=== PATIENT | female | born 1965 ===

== ENCOUNTER 2020-01-14 10:08 | Emergency (ER) | payer SELFPAY ==
[~2020-01-14] VITALS: Ht 170.2 cm; Wt 102.7 kg
[2020-01-14 10:18] VITALS: BP 103/56; TEMP 98.7
[2020-01-14] MEDS ORDERED: PROAIR HFA0.09 MG/AC IH (12:13)
[2020-01-14 12:27] VITALS: PULSE 84
== END 2020-01-14 12:30 | disposition home or self-care (01) ==
LOC: COL.ER 10:08
DX: J10.1 Influenza due to other identified influenza virus with other respiratory manifestations (principal); Z88.0 Allergy status to penicillin; Z87.891 Personal history of nicotine dependence

== ENCOUNTER 2020-05-11 13:52 | Inpatient (IN) | payer SELFPAY ==
[~2020-05-11] VITALS: Ht 170.2 cm; Wt 102.9 kg
[2020-05-11] VITALS (340 sets, daily range): BP systolic 170; BP diastolic 92; PULSE 78; TEMP 98.7; O2SAT 92–100
[~2020-05-11 13:52] MED LIST: PROAIR HFA0.09 MG/AC IH
[2020-05-11 14:20] LABS: BASO % 0.5 % (0.0-2.0); EOS # 0.2 (0.0-0.7); EOS % 2.8 % (0-4.0); GRAN # 4.8 (1.4-6.5); GRAN % 63.9 % (42.2-75.2); HEMATOCRIT 45.8 % (37.0-47.0); HEMOGLOBIN 15.3 g/dl (12.5-16.0); LYMPH % 26.9 % (20.0-51.0); MEAN CELL VOLUME 84 fl (80.0-100.0); MEAN CORPUSCULAR HEMOGLOBIN 28 pg (27.0-31.0); MEAN CORPUSCULAR HGB CONC 33 g/dl (33.0-37.0); MEAN PLATELET VOLUME 11.2 fl (7.4-10.4); MONO # 0.4 (0.1-0.6); MONO % 5.8 % (1.7-9.3); PLATELET COUNT 310 K/mm3 (130-400); RED BLOOD COUNT 5.45 M/mm3 (4.10-5.30); REDCELL DISTRIBUTION WIDTH-CV 13.5 % (11.5-14.5)
[2020-05-11 14:25] LABS: COLLECTION METHOD CLEAN CATCH
[2020-05-11 14:31] LABS: MUCOUS Present /lpf; PH 5 (5-8); SQUAMOUS EPITHELIAL 0-2 /hpf; URINE APPEARANCE Clear; URINE BACTERIA None Seen /hpf; URINE BILIRUBIN Negative (NEGATIVE); URINE BLOOD Negative (NEGATIVE); URINE COLOR Yellow; URINE GLUCOSE 3+ (NEGATIVE); URINE KETONE 2+ (NEGATIVE); URINE LEUKOCYTE ESTERASE Negative (NEGATIVE); URINE NITRATE Negative (NEGATIVE); URINE PROTEIN(semi-quant) Negative (NEGATIVE); URINE RBC 0-2 /hpf; URINE UROBILINOGEN Negative (NEGATIVE)
[2020-05-11 14:35] LABS: ALBUMIN 4.5 gm/dL (3.5-5.0); BILIRUBIN,TOTAL 0.7 mg/dL (0.0-1.0); C-REACTIVE PROTEIN 1.2 mg/dL (0.0-0.9); CALCIUM 9.5 mg/dL (8.4-10.2); CREATININE, serum 0.61 (0.52-1.25); POTASSIUM 4.2 mmol/L (3.4-5.0); TOTAL PROTEIN 7.9 gm/dL (6.4-8.2)
--- NOTE | 2020-05-11 16:15 | NUR ---
Report received from nurse in ED.
--- NOTE | 2020-05-11 16:35 | NUR ---
Patient received from ED. Patient is resting comfortably in bed. Call light and bedside table are within reach. WIll continue to monitor patient throughout shift.
[2020-05-11 17:48] LABS: MAGNESIUM 1.9 mg/dL (1.6-2.3); PHOSPHOROUS 2.8 mg/dL (2.5-4.5)
[2020-05-11 18:03] LABS: TROPONIN-I 3 HR POST INITIAL < 0.012 ng/mL (0.000-0.034)
--- NOTE | 2020-05-11 18:30 | NUR ---
AT THIS TIME IT IS NOTED THAT APPROXIMATELY 75 CC OF INSULIN BOLUS D/T THE IV PUMP CHANNELS BEING SET UP INCORRECTLY. THE PRIMARY LINE ( WITH IV FLUIDS) WAS SET UP FOR THE INSULIN GTT AND THE SECONDARY LINE ( WITH REGULAR INSULIN) WAS PROGRAMMED FOR THE IV FLUID RATE OF 250 CC/HR. INSULIN BAG WAS EMPTY WHEN THIS RN ENTERED THE ROOM. AFTER SHEELA RAYMOND NOTIFIED OF THIS ERROR, IV PUMP PROGRAMMING WAS CORRECTED, THE INSULIN WAS KEPT OFF OF PATIENT. JOYCE CALVO, WAS CALLED AND NOTIFIED OF THIS ERROR. ORDERS RECEIVED FOR Q15 MIN BLOOD GLUCOSE CHECKS.
--- NOTE | 2020-05-11 19:12 | NUR ---
JOYCE CALVO CALLED FOR ORDERS D/T BLOOD GLUCOSE BEING 77. ORDERS RECEIVED FOR 1/2 AMP OF D50. WILL ADMINISTER AND CALL JOYCE CALVO BACK WITH UPDATE 15 MIN AFTER ADMINISTRATION AND BLOOD GLUCOSE CHECK.
--- NOTE | 2020-05-11 19:15 | NUR ---
Report given to SHEELA Chao. Patient is resting in bed. Call light and bedside table are within reach.
[2020-05-11 19:21] LABS: ANION GAP 11 mmol/L (7-16); BLOOD UREA NITROGEN 7 mg/dL (7-17); CALCIUM 9.3 mg/dL (8.4-10.2); CARBON DIOXIDE 17 mmol/L (22-30); CHLORIDE 114 mmol/L (98-107); CREATININE, serum 0.56 (0.52-1.25); GLUCOSE 88 mg/dL (74-106); POTASSIUM 3.1 mmol/L (3.4-5.0); SODIUM 142 mmol/L (137-145)
[2020-05-11 19:35] LABS: TROPONIN-I 6 HR POST INITIAL < 0.012 ng/mL (0.000-0.034)
--- NOTE | 2020-05-11 19:45 | NUR ---
Nurse at bedside. Patient denies nausea. Reports feeling "better" since administration of 1/2 amp D50. Will continue to closely monitor blood glucose levels.
--- NOTE | 2020-05-11 21:18 | NUR ---
Updated hospitalist on patient status. Reported last several accu checks. Ok to start hourly accu checks.
[2020-05-11 21:56] LABS: CALCIUM 8.9 mg/dL (8.4-10.2); CREATININE, serum 0.47 (0.52-1.25); POTASSIUM 3.8 mmol/L (3.4-5.0)
[2020-05-11 23:40] LABS: CALCIUM 8.6 mg/dL (8.4-10.2); CREATININE, serum 0.46 (0.52-1.25); POTASSIUM 4.4 mmol/L (3.4-5.0)
--- NOTE | 2020-05-11 23:45 | NUR ---
Discussed with hospitalist switiching to sliding scale. Patient deniess nausea and has asked several times for food. Will start ADA diet.
[2020-05-12] VITALS (1192 sets, daily range): BP systolic 112–121; BP diastolic 68–76; PULSE 64–85; TEMP 97.7–98.7; O2SAT 91–100
[2020-05-12 01:33] LABS: CALCIUM 8.9 mg/dL (8.4-10.2); CREATININE, serum 0.58 (0.52-1.25); POTASSIUM 4.2 mmol/L (3.4-5.0)
[2020-05-12 06:48] LABS: ANION GAP 11 mmol/L (7-16); BLOOD UREA NITROGEN 4 mg/dL (7-17); CALCIUM 9.1 mg/dL (8.4-10.2); CARBON DIOXIDE 16 mmol/L (22-30); CHLORIDE 110 mmol/L (98-107); CREATININE, serum 0.56 (0.52-1.25); GLUCOSE 260 mg/dL (74-106); POTASSIUM 4.3 mmol/L (3.4-5.0); SODIUM 137 mmol/L (137-145)
[2020-05-12 07:09] LABS: TROPONIN-I < 0.012 ng/mL (0.000-0.035)
--- NOTE | 2020-05-12 07:30 | NUR ---
Report recieved from Zhanna COKER. Patient in bed, complains of ANAND. Tylenol given by Gaby COKER. Call light in reach, denies further needs
[2020-05-12 09:57] LABS: CALCIUM 8.9 mg/dL (8.4-10.2); CREATININE, serum 0.45 (0.52-1.25); POTASSIUM 4.3 mmol/L (3.4-5.0)
--- NOTE | 2020-05-12 11:23 | NUR ---
Spoke with patient about restarting Insulin drip, voices understanding. Drip verified by this RN and Guillermo Dhaliwal RN.
[2020-05-12 12:28] LABS: CALCIUM 8.9 mg/dL (8.4-10.2); CREATININE, serum 0.46 (0.52-1.25); POTASSIUM 4.1 mmol/L (3.4-5.0)
--- NOTE | 2020-05-12 14:05 | NUR ---
Malter Operator met with patient to discuss discharge planning. Patient is tearful when SW arrives but does not want to elaborate why. Patient is agreeable to answer questions. Patient lives in [place] with her significant other, Floyd (ph#[phone]). Patient is employed at [employer] but states she has not worked there long enough to qualify for insurance coverage. Patient does not have primary care but would like an appointment set up at [facility]. Patient does not take any medications normally but has used [facility] in the past for medications. Patient is a new diabetic and is concerned about affording medications. Patient does not have Advance Directives but would like to set up DPOA-HC. SW assisted patient in completing form. Patient verbalized understanding of DPOA-HC and states she would like to designate her significant other, Floyd Mujica and her brother, Javier Vidal. TUNDE and RNNisha provided witness signature. SW provided original and copies to patient and placed copy on patient's chart. Patient states her brother and three children, Italo, Ishmael, and Jaleel all live in [place]. Following intake, TUNDE contacted [facility] to schedule appointment but was asked to call back tomorrow as all medical staff are gone today. TUNDE followed up with Linda, Pharmacist to discuss [facility]. Linda reports it is still too early to know what patient will be prescribed upon discharge. TUNDE received an email from [employer] Counselor who will follow up with patient about FAA. SW to continue to follow.
[2020-05-12 16:20] LABS: CALCIUM 8.7 mg/dL (8.4-10.2); CREATININE, serum 0.48 (0.52-1.25); POTASSIUM 3.8 mmol/L (3.4-5.0)
--- NOTE | 2020-05-12 20:30 | NUR ---
Assisted with PM cares. Reports some mild nausea; prn Zofran administered. Denies any other needs or concerns at this time. Will continue to monitor.
[2020-05-12 22:13] LABS: CALCIUM 8.5 mg/dL (8.4-10.2); CREATININE, serum 0.42 (0.52-1.25); POTASSIUM 3.5 mmol/L (3.4-5.0)
[2020-05-13] VITALS (710 sets, daily range): BP systolic 104–121; BP diastolic 47–64; PULSE 65–84; TEMP 97.8–98.6; O2SAT 91–100
--- NOTE | 2020-05-13 01:30 | NUR ---
Attempted to give patient second dose of effervescent potassium. Refused PO dose and requested IV. Will switch to IV replacement.
[2020-05-13 06:13] LABS: BASO % 0.8 % (0.0-2.0); EOS # 0.2 (0.0-0.7); EOS % 4.3 % (0-4.0); GRAN # 2.2 (1.4-6.5); HEMATOCRIT 38.3 % (37.0-47.0); LYMPH # 2.1 (1.2-3.4); LYMPH % 42.1 % (20.0-51.0); MEAN CELL VOLUME 84 fl (80.0-100.0); MEAN CORPUSCULAR HEMOGLOBIN 29 pg (27.0-31.0); MEAN CORPUSCULAR HGB CONC 34 g/dl (33.0-37.0); MEAN PLATELET VOLUME 11.1 fl (7.4-10.4); MONO # 0.4 (0.1-0.6); MONO % 7.4 % (1.7-9.3); PLATELET COUNT 250 K/mm3 (130-400); RED BLOOD COUNT 4.55 M/mm3 (4.10-5.30); REDCELL DISTRIBUTION WIDTH-CV 13.6 % (11.5-14.5)
[2020-05-13 06:27] LABS: ALBUMIN 3.1 gm/dL (3.5-5.0); BILIRUBIN,TOTAL 0.4 mg/dL (0.0-1.0); CALCIUM 8.7 mg/dL (8.4-10.2); CREATININE, serum 0.38 (0.52-1.25); MAGNESIUM 1.6 mg/dL (1.6-2.3); POTASSIUM 3.8 mmol/L (3.4-5.0); TOTAL PROTEIN 5.8 gm/dL (6.4-8.2)
--- NOTE | 2020-05-13 07:35 | NUR ---
Report received from Zhanna COKER and care resumed.
--- NOTE | 2020-05-13 09:33 | NUR ---
Dr Amador in to see pt at this time.
--- NOTE | 2020-05-13 10:36 | NUR ---
Insulin drip discontinued per Dr Amador verbal order
[2020-05-13] MEDS ORDERED: HUMALOG PEN100 U/ML SQ (11:38)
[2020-05-13] MEDS ORDERED: BASAGLAR K100 UNIT/1 SQ (11:38)
--- NOTE | 2020-05-13 12:52 | NUR ---
Gum Scoring Machine Operator attended clinical rounds with the team and patient to move to the medical floor. Patient will require insulin upon discharge but does not have insurance coverage. TUNDE collaborated with Linda Pharmacist to obtain prescription. TUNDE met with patient to complete Eligibility Attestation. TUNDE faxed Eligibility Attestation and prescription to [facility] and was advised that the insulin would ship tomorrow and arrive on Monday. TUNDE contacted [facility] and scheduled patient an appointment for 05/19/20 at 1100 (arrival time 1030). TUNDE faxed records to [facility] at fax#[phone]. TUNDE provided appointment time to patient and RNCristina. TUNDE provided update to medical floor SW.
--- NOTE | 2020-05-13 14:33 | NUR ---
Report called to Anish COKER on medical floor. Pt taken by wheelchair to room 351 with chart and belongings.
--- NOTE | 2020-05-13 16:00 | NUR ---
report received from SHEELA Teague, resting in bed, IV infusing to right forearm, no redness or swelling noted, denies needs
--- NOTE | 2020-05-13 16:50 | NUR ---
watching TV, assessment completed, see interventions for further info
--- NOTE | 2020-05-13 18:15 | NUR ---
continues to watch TV and await supper, denies needs
--- NOTE | 2020-05-13 18:57 | NUR ---
bedside shift report given to SHEELA Godinez
--- NOTE | 2020-05-13 20:30 | NUR ---
Received report from SHEELA Lua. A/O x 4. Denies any pain or discomfort at this time. meds adminsitered as ordered. IV to RFA intact with fluids infusing, dressing CDI. Independent in room. able to make needs known. Call light within reach.
[2020-05-14 04:40] VITALS: BP 112/52; PULSE 69; TEMP 98.1
--- NOTE | 2020-05-14 06:20 | NUR ---
Pt made no complaints during this shift. call light within reach.
--- NOTE | 2020-05-14 06:58 | NUR ---
Report given to SHEELA Julio.
[2020-05-14 07:03] LABS: CALCIUM 8.8 mg/dL (8.4-10.2); CREATININE, serum 0.41 (0.52-1.25); MAGNESIUM 1.5 mg/dL (1.6-2.3); POTASSIUM 3.9 mmol/L (3.4-5.0)
[2020-05-14 07:53] VITALS: BP 111/59; PULSE 66; TEMP 97.9
--- NOTE | 2020-05-14 10:05 | NUR ---
SW attended clinical rounds with the team. SW will continue to monitor to ensure a safe discharge.
[2020-05-14 11:10] VITALS: BP 110/52; PULSE 73; TEMP 97.4
--- NOTE | 2020-05-14 11:48 | NUR ---
PT BG >280. PT REPORTS FEELING NAUSEOUS AND DRY MOUTH, SYMPTOMS THAT BROUGHT HER IN. SLIDING SCALE INSULIN GIVEN. ZOFRAN ALSO GIVEN.
--- NOTE | 2020-05-14 13:13 | NUR ---
PT EDUCATE ON INSULIN TYPES AND USES BY PHARMACIST. ADMINISTRATION, SIGNS/SYMPTOMS OF HYPO/HYPERGLYCEMIA, EXERCISE IMPORTANCE, BLOOD GLUCOSE MONITORING, MEAL PLANNING AND FOODS TO AVOID REVIEWED WITH NURSE. TIGHTENER CONSULTED AND REVIEWED FOOD RECOMMENDATIONS. PT GIVEN DIABETES EDUCATION APPOINTMENT CARD. REPORTS UNDERSTANDING.
[2020-05-14 16:36] VITALS: BP 117/55; PULSE 73; TEMP 97.8
--- NOTE | 2020-05-14 19:22 | NUR ---
PATIENT RESTING IN BED DURING CHANGE OF SHIFT REPORT FROM DAY SHIFT NURSEPATTI. BED ALARM ON. TELE AND SALINE LOCK IN PLACE.
[2020-05-14 19:31] VITALS: BP 110/53; PULSE 78; TEMP 98
[2020-05-14 23:45] VITALS: BP 109/45; PULSE 80; TEMP 98.2
--- NOTE | 2020-05-15 03:00 | NUR ---
PATIENT SLEEPING, BREATHING OBSERVED NONLABORED AND EVEN. DOES NOT AWAKEN WHEN DOOR TO ROOM IS OPENED BY STAFF.
[2020-05-15 04:24] VITALS: BP 122/71; PULSE 71; TEMP 98
--- NOTE | 2020-05-15 07:30 | NUR ---
PATIENT RESTING IN BED DURING CHANGE OF SHIFT REPORT GIVEN TO DAY SHIFT NURSEJUDE.
[2020-05-15 07:35] VITALS: BP 130/73; PULSE 70; TEMP 98.3
[2020-05-15 07:38] LABS: BASO % 0.9 % (0.0-2.0); EOS # 0.3 (0.0-0.7); EOS % 5.7 % (0-4.0); GRAN # 1.9 (1.4-6.5); GRAN % 42.2 % (42.2-75.2); HEMATOCRIT 40.7 % (37.0-47.0); HEMOGLOBIN 13.4 g/dl (12.5-16.0); LYMPH % 44.5 % (20.0-51.0); MEAN CELL VOLUME 86 fl (80.0-100.0); MEAN CORPUSCULAR HEMOGLOBIN 28 pg (27.0-31.0); MEAN CORPUSCULAR HGB CONC 33 g/dl (33.0-37.0); MEAN PLATELET VOLUME 11.2 fl (7.4-10.4); MONO # 0.3 (0.1-0.6); MONO % 6.3 % (1.7-9.3); PLATELET COUNT 271 K/mm3 (130-400); RED BLOOD COUNT 4.73 M/mm3 (4.10-5.30); REDCELL DISTRIBUTION WIDTH-CV 13.8 % (11.5-14.5)
[2020-05-15 07:50] LABS: CALCIUM 9.2 mg/dL (8.4-10.2); CREATININE, serum 0.49 (0.52-1.25); POTASSIUM 4.3 mmol/L (3.4-5.0)
--- NOTE | 2020-05-15 08:00 | NUR ---
sitting up in bed eating breakfast, self administered insulin with nurse observing, administers correctly, denies needs at this time
[2020-05-15] MEDS ORDERED: GLUCOPHAGE500 MG/TAB PO (09:23)
[2020-05-15] MEDS ORDERED: BASAGLAR K100 UNIT/1 SQ (09:24)
[2020-05-15] MEDS ORDERED: HUMALOG PEN100 U/ML SQ (09:25)
--- NOTE | 2020-05-15 09:30 | NUR ---
c/o nausea after breakfast, medicated with zofran 4mg slow IV, Dr Haji and care team in to see patient, full assessment completed, see interventions for further info
--- NOTE | 2020-05-15 10:15 | NUR ---
resting in bed, states nausea is now better
[2020-05-15] MEDS ORDERED: LANCETS MC (10:53)
[2020-05-15] MEDS ORDERED: FREESTYLE PREC1 EAC5 MC (10:53)
[2020-05-15] MEDS ORDERED: GLUCOSE TEST ST1 DEV MC (10:53)
--- NOTE | 2020-05-15 11:05 | NUR ---
The patient is to discharge home today, 05/15. [facility] has delivered the patient's insulin and was given to the patient. The patient will by a glucose meter and strips to monitor her blood sugar levels. There are no additional needs at this time.
--- NOTE | 2020-05-15 12:15 | NUR ---
written discharge instructions given to patient, family is picking up glucometer at [facility] and patient verbalizes she will know how to use it, will provide instructions on use of insulin pen when lunch is served and will then give insulin
[2020-05-15 12:22] VITALS: BP 104/55; PULSE 70; TEMP 97.8
--- NOTE | 2020-05-15 12:45 | NUR ---
lunch is served, instructed and then observed her administering her insulin using the insulin pen, was able to complete correctly,
--- NOTE | 2020-05-15 13:01 | NUR ---
shift report given to SHEELA Valdez
--- NOTE | 2020-05-15 13:40 | NUR ---
IV removed, gauze and coban applied, patient tolerated well. Discharge paperwork reviewed with patient by SHEELA Lua. Patient walked independently with by the side to vehicle with nursing staff. No further needs expressed from patient.
== END 2020-05-15 13:40 | disposition home or self-care (01) | DRG 639 ==
LOC: COL.ER 13:52 → ICU 15:13 → MEDICAL 05-13 15:23
PROVIDERS: Internal Medicine; Physician Assistant; Student in an Organized Health Care Education/Training Program; ADMIT Hospitalist
DX: E11.10 Type 2 diabetes mellitus with ketoacidosis without coma (principal); J45.909 Unspecified asthma, uncomplicated; E11.65 Type 2 diabetes mellitus with hyperglycemia; E66.9 Obesity, unspecified; Z98.51 Tubal ligation status; Z68.35 Body mass index [BMI] 35.0-35.9, adult
CPT/HCPCS: 99222-AI; 99232-AI; 99233-AI; 99239; C9113; J1650; J1815; J2405; J3480; J7030; J7120